=== PATIENT | female | born 1990 | race Caucasian/White ===

== ENCOUNTER 2017-05-01 16:01 | Emergency (ER) | payer BC, OTHER ==
[~2017-05-01] VITALS: Ht 177.8 cm; Wt 59.0 kg
[2017-05-01 16:08] VITALS: BP 138/78
== END 2017-05-01 16:29 | disposition home or self-care (01) ==
LOC: ER 16:04
DX: L30.9 Dermatitis, unspecified (principal); B37.3 Candidiasis of vulva and vagina; Z91.018 Allergy to other foods
CPT/HCPCS: 99283; A4606; Z7610